=== PATIENT | male | born 1965 | race Caucasian/White ===

== ENCOUNTER 2022-05-13 14:20 | Emergency (ER) | payer OTHER ==
[~2022-05-13] VITALS: Ht 177.8 cm; Wt 95.3 kg
[~2022-05-13 14:20] MED LIST: CLONAZEPAM0.5 MG PO
[2022-05-13] MEDS ORDERED: ZITHROMAX500 MG PO (19:19)
[2022-05-13] MEDS ORDERED: DEXAMETHASONE4 MG PO (19:19)
== END 2022-05-13 20:36 | disposition home or self-care (01) ==
LOC: ER 14:20
DX: B34.8 Other viral infections of unspecified site (principal); Z20.822 Contact with and (suspected) exposure to COVID-19; Z86.16 Personal history of COVID-19